=== PATIENT | male | born 1965 | race Caucasian/White ===

== ENCOUNTER 2019-08-26 19:49 | Emergency (ER) | payer OTHER ==
[~2019-08-26] VITALS: Ht 170.2 cm; Wt 72.6 kg
--- NOTE | 2019-08-26 20:00 | NUR ---
CALLED TO TRIAGE, NOT IN WAITING ROOM
[2019-08-26 20:19] VITALS: BP 130/87
--- NOTE | 2019-08-26 21:06 | NUR ---
NIGEL ZHAO [phone]
[2019-08-26] MEDS: ACETAMINOPHEN 325 MG TABLET PO ONE (21:26)
== END 2019-08-26 22:40 | disposition home or self-care (01) ==
LOC: ER 19:49
DX: S01.511A Laceration without foreign body of lip, initial encounter (principal); S09.8XXA Other specified injuries of head, initial encounter; F10.10 Alcohol abuse, uncomplicated; F17.200 Nicotine dependence, unspecified, uncomplicated; R05 Cough; J32.4 Chronic pansinusitis; V67.5XXA Driver of heavy transport vehicle injured in collision with fixed or stationary object in traffic accident, initial encounter; Y93.89 Activity, other specified; Y92.413 State road as the place of occurrence of the external cause; Y99.8 Other external cause status; Y90.9 Presence of alcohol in blood, level not specified
CPT/HCPCS: 70450; 99284; 99406; A6403